=== PATIENT | female | born 1995 | race African-American/Black ===

== ENCOUNTER 2016-10-10 17:10 | Outpatient (CLI) | payer OTHER ==
[~2016-10-10] VITALS: Ht 167.6 cm; Wt 88.0 kg
[2016-10-10 17:39] VITALS: BP 120/55
== END 2016-10-10 19:15 | disposition home or self-care (01) ==
LOC: LDRP-OP 17:10 → 2WEST 17:13 → LDRP-OP 12-08 14:27
DX: O36.8130 Decreased fetal movements, third trimester, not applicable or unspecified (principal); Z3A.36 36 weeks gestation of pregnancy
CPT/HCPCS: 59025; 87081; G0378

== ENCOUNTER 2016-11-02 07:29 | Inpatient (IN) | payer OTHER ==
[2016-11-02] VITALS (30 sets, daily range): BP systolic 108–157; BP diastolic 55–100
[~2016-11-02] VITALS: Ht 167.6 cm; Wt 93.2 kg
[2016-11-02] MEDS ORDERED: PRENATAL GUMMI1 EACH PO (08:08)
[2016-11-02 09:25] LABS: EOSINOPHIL (%) 1.1 % (0-5); EOSINOPHIL COUNT 0.1 K/uL (0-0.3); HEMATOCRIT 30.9 % (36.0-46.0); IMMATURE GRANULOCYTE (%) 0.4 % (0.0-0.7); LYMPHOCYTE COUNT 1.8 K/uL (1.0-2.8); MCH 25.9 PG (29.0-34.0); MCHC 32.7 G/DL (30.0-36.0); MCV 79.2 FL (83-99); MONOCYTE (%) 12.8 % (3-12); MONOCYTE COUNT 0.7 K/uL (0-0.8); NEUTROPHIL (%) 52.9 % (45-76); PLATELET COUNT 275 K/uL (156-360); RBC DIS.WIDTH-CV 15.3 % (11.8-14.6); RBC DIS.WIDTH-SD 43.3 % (39-53); WHITE BLOOD COUNT 5.7 K/uL (4.1-10.2)
[2016-11-02 22:38] LABS: ADD MEDTOX COMMENT Y; AMPHETAMINE NEGATIVE (500 ng/mL); BARBITURATES NEGATIVE (200 ng/mL); BENZODIAZEPINES NEGATIVE (150 ng/mL); COCAINE NEGATIVE (150 ng/mL); INTERNAL CONTROLS VALID? YES; METHADONE NEGATIVE (200 ng/mL); METHAMPHETAMINE NEGATIVE (500 ng/mL); OPIATES (MORPHINE) NEGATIVE (100 ng/mL); OXYCODONE NEGATIVE (100 ng/mL); PHENCYCLIDINE NEGATIVE (25 ng/mL); PROPOXYPHENE NEGATIVE (300 ng/mL); THC CANNABINOIDS PRESUMPTIVE POSITIVE (50 ng/mL); TRICYCLIC ANTIDEPRESSANTS NEGATIVE (300 ng/mL)
[2016-11-03 01:00] VITALS: BP 102/54
[2016-11-03 05:59] LABS: EOSINOPHIL (%) 0.8 % (0-5); EOSINOPHIL COUNT 0.1 K/uL (0-0.3); HEMATOCRIT 29.4 % (36.0-46.0); IMMATURE GRANULOCYTE (%) 0.4 % (0.0-0.7); LYMPHOCYTE COUNT 2.1 K/uL (1.0-2.8); MCH 25.2 PG (29.0-34.0); MCV 78.8 FL (83-99); MEAN PLAT.VOLUME 9.1 uM^3 (9.5-12.4); MONOCYTE (%) 14.9 % (3-12); MONOCYTE COUNT 1.3 K/uL (0-0.8); PLATELET COUNT 253 K/uL (156-360); RBC DIS.WIDTH-CV 14.9 % (11.8-14.6); RBC DIS.WIDTH-SD 42.8 % (39-53); RED BLOOD COUNT 3.73 M/uL (3.80-5.20); WHITE BLOOD COUNT 8.5 K/uL (4.1-10.2)
[2016-11-03 07:10] VITALS: BP 110/62
[2016-11-03 15:05] VITALS: BP 121/70
[2016-11-03 23:36] VITALS: BP 104/59
[2016-11-04 08:01] VITALS: BP 133/74
[2016-11-04] MEDS ORDERED: IBUPROFEN800 MG PO (08:12)
== END 2016-11-04 14:20 | disposition home or self-care (01) | DRG 775 ==
LOC: LDRP-OP → 2WEST 07:30 → LDRP-OP 10:48 → 2WEST 21:41 → LDRP-OP 12-08 20:21
PROVIDERS: Advanced Practice Midwife
PROC: 00HU33Z Insertion of Infusion Device into Spinal Canal, Percutaneous Approach (ICD-10-PCS; principal; 2016-11-02)
PROC: 10907ZC Drainage of Amniotic Fluid, Therapeutic from Products of Conception, Via Natural or Artificial Opening (ICD-10-PCS; principal; 2016-11-02)
PROC: 10E0XZZ Delivery of Products of Conception, External Approach (ICD-10-PCS; principal; 2016-11-02)
PROC: 3E0S3CZ (ICD-10-PCS; principal; 2016-11-02)
PROC: 3E033VJ Introduction of Other Hormone into Peripheral Vein, Percutaneous Approach (ICD-10-PCS; principal; 2016-11-02)
DX: O26.03 Excessive weight gain in pregnancy, third trimester (principal); D62 Acute posthemorrhagic anemia; O99.02 Anemia complicating childbirth; D50.9 Iron deficiency anemia, unspecified; Z3A.39 39 weeks gestation of pregnancy; Z37.0 Single live birth; O99.52 Diseases of the respiratory system complicating childbirth; O76 Abnormality in fetal heart rate and rhythm complicating labor and delivery; J45.909 Unspecified asthma, uncomplicated; O09.33 Supervision of pregnancy with insufficient antenatal care, third trimester
CPT/HCPCS: 84999; 85025; C1755; J3010; J7120